=== PATIENT | female | born 1975 | race Caucasian/White ===

== ENCOUNTER 2024-08-14 00:34 | Emergency (ER) | payer OTHER ==
[~2024-08-14] VITALS: Ht 162.6 cm; Wt 55.8 kg
[2024-08-14] MEDS ORDERED: HYDR-3980 PO (01:50)
[2024-08-14] MEDS ORDERED: HYDROCODONE/APAP 10-325 MG TABLET ONE (01:55)
[2024-08-14] MEDS: HYDROCODONE/APAP 10-325 MG TABLET PO ONE (01:59)
[2024-08-14 03:01] VITALS: BP 130/80; TEMP 98; O2SAT 99
== END 2024-08-14 03:02 | disposition home or self-care (01) ==
LOC: ER 01:13
DX: K08.89 Other specified disorders of teeth and supporting structures (principal)
CPT/HCPCS: A4606; A4663